=== PATIENT | male | born 1960 | race Caucasian/White ===

== ENCOUNTER 2024-04-18 10:06 | Observation (INO) | payer MEDICARE ==
[2024-04-18 11:09] LABS: BASOPHILS ABSOLUTE AUTO 0.03 K/uL (0.00-0.20); BASOPHILS PERCENT AUTO 0.4 % (0.0-1.0); EOSINOPHILS ABSOLUTE AUTO 0.16 K/uL (0.00-0.45); HEMOGLOBIN 14.6 g/dL (14.0-18.0); IMMATURE GRAN ABSOLUTE AUTO 0.03 K/uL (0.00-0.05); IMMATURE GRAN PERCENT AUTO 0.4 % (0.0-0.4); LYMPHOCYTES PERCENT AUTO 21.3 % (24.0-44.0); MEAN CORPUSCULAR HEMOGLOBIN 30.9 pg (28.0-32.0); MEAN CORPUSCULAR VOLUME 90.9 fL (83.0-99.0); MEAN PLATELET VOLUME 9.4 fL (9.4-12.4); MONOCYTES ABSOLUTE AUTO 0.46 K/uL (0.00-0.80); MONOCYTES PERCENT AUTO 5.8 % (0.0-8.0); NEUTROPHILS ABSOLUTE AUTO 5.59 K/uL (1.80-7.70); NEUTROPHILS PERCENT AUTO 70.1 % (41.0-71.0); PLATELET COUNT,PLT 255 K/uL (150-400); RED BLOOD CELL COUNT 4.73 M/uL (4.52-5.90); WHITE BLOOD CELL COUNT,WBC 7.97 K/uL (3.9-11.3)
[2024-04-18 11:27] LABS: INR 1.03 (0.86-1.11); PTT,PARTIAL THROMBOPLSTIN TIME 28.6 SEC (23.9-30.7)
[2024-04-18 11:53] LABS: A/G RATIO 1.5 (0.9-1.6); ALBUMIN 4.1 g/dL (3.4-5.0); BILIRUBIN TOTAL 1.1 mg/dL (0.2-1.0); CARBON DIOXIDE,CO2 26.2 mmol/L (21.0-32.0); EST CRCL DRUG DOSING (CG) 78.07 mL/min; POTASSIUM,K 4.4 mmol/L (3.5-5.1); PROTEIN TOTAL,TP 6.9 g/dL (6.4-8.2)
[2024-04-18 12:07] LABS: MAGNESIUM 2.1 mg/dL (1.8-2.4); TSH ULTRASENSITIVE 3.07 uIU/mL (0.36-3.74)
[2024-04-18] MEDS: Iopamidol 755 MG/ML 500 ML Multipack Bottle IVPUSH STA (12:28)
[2024-04-18 13:32] LABS: APPEARANCE,URINE CLEAR; BILIRUBIN,URINE NEGATIVE (NEGATIVE); COLOR,URINE YELLOW; GLUCOSE,URINE NEGATIVE (NEGATIVE); KETONES,URINE NEGATIVE (NEGATIVE); LEUKOCYTE ESTERASE,URINE NEGATIVE (NEGATIVE); NITRITE,URINE NEGATIVE (NEGATIVE); OCCULT BLOOD,URINE TRACE-INTACT (NEGATIVE); PROTEIN,URINE NEGATIVE (NEGATIVE); UROBILINOGEN,URINE 0.2 EU/dL (<2.0)
[2024-04-18] MEDS ORDERED: Acetaminophen 325 MG Tab PO PRN (14:22)
[2024-04-18] MEDS ORDERED: Polyethylene Glycol 3350 Powder 17 GM Packet PO PRN (14:22)
[2024-04-18 14:26] LABS: BACTERIA,URINE NOT SEEN (NEGATIVE); EPITHELIAL CELLS,URINE RARE (NONE-FEW); RBC,URINE 0-2 (0-2/HPF); SPERM,URINE OCCASIONAL (NEGATIVE); WBC,URINE 0-1 (0-5/HPF)
[2024-04-18 14:48] LABS: HEMOGLOBIN A1C 5.8 %
[2024-04-19 05:39] LABS: BASOPHILS ABSOLUTE AUTO 0.03 K/uL (0.00-0.20); BASOPHILS PERCENT AUTO 0.4 % (0.0-1.0); EOSINOPHILS ABSOLUTE AUTO 0.27 K/uL (0.00-0.45); EOSINOPHILS PERCENT AUTO 3.6 % (0.0-6.0); HEMATOCRIT 42.7 % (42.0-52.0); HEMOGLOBIN 14.2 g/dL (14.0-18.0); IMMATURE GRAN ABSOLUTE AUTO 0.02 K/uL (0.00-0.05); IMMATURE GRAN PERCENT AUTO 0.3 % (0.0-0.4); LYMPHOCYTES ABSOLUTE AUTO 2.21 K/uL (1.00-4.80); LYMPHOCYTES PERCENT AUTO 29.5 % (24.0-44.0); MEAN CORPUSCULAR HEMOGLOBIN 30.3 pg (28.0-32.0); MEAN CORPUSCULAR HGB CONC 33.3 g/dL (32.0-36.0); MEAN PLATELET VOLUME 9.6 fL (9.4-12.4); MONOCYTES ABSOLUTE AUTO 0.46 K/uL (0.00-0.80); MONOCYTES PERCENT AUTO 6.1 % (0.0-8.0); NEUTROPHILS ABSOLUTE AUTO 4.49 K/uL (1.80-7.70); NEUTROPHILS PERCENT AUTO 60.1 % (41.0-71.0); PLATELET COUNT,PLT 254 K/uL (150-400); RED BLOOD CELL COUNT 4.69 M/uL (4.52-5.90); WHITE BLOOD CELL COUNT,WBC 7.48 K/uL (3.9-11.3)
[2024-04-19 06:12] LABS: A/G RATIO 1.3 (0.9-1.6); ALBUMIN 3.6 g/dL (3.4-5.0); BILIRUBIN TOTAL 1.1 mg/dL (0.2-1.0); CALCIUM 8.9 mg/dL (8.5-10.1); CARBON DIOXIDE,CO2 24.7 mmol/L (21.0-32.0); EST CRCL DRUG DOSING (CG) 78.07 mL/min; POTASSIUM,K 4.1 mmol/L (3.5-5.1); PROTEIN TOTAL,TP 6.4 g/dL (6.4-8.2)
[2024-04-19] MEDS ORDERED: Lidocaine 1% 10 ML MDV INJECT ONE (10:38)
== END 2024-04-19 18:27 | disposition home or self-care (01) ==
LOC: MW.ED 10:06 → MW.MS 14:42
PROVIDERS: ADMIT Internal Medicine; ATTEND Internal Medicine
DX: G45.9 Transient cerebral ischemic attack, unspecified (principal)
CPT/HCPCS: 36415; 70450; 70496; 70498; 70551; 71046; 72125; 80053; 80061; 81001; 82607; 83036; 83735; 84443; 84484; 85025; 85610; 85730; 93005; 93246; 93306; 97163; 99285; Q9967; 93010; G0378

== ENCOUNTER 2025-05-31 06:11 | Day surgery (SDC) | payer MEDICARE ==
[2025-05-31] MEDS: Lactated Ringers 1,000 ML IV SCH (06:57)
[2025-05-31] MEDS ORDERED: Propofol 200 MG/20 ML SDV ONE (07:37)
[2025-05-31] MEDS ORDERED: Midazolam 1 MG/ML 2 ML SDV ONE (07:37)
[2025-05-31] MEDS ORDERED: fentaNYL 100 MCG/2 ML SDV ONE (07:37)
[2025-05-31] MEDS ORDERED: ePHEDrine 50 MG/ML SDV ONE (08:07)
[2025-05-31] MEDS ORDERED: Ondansetron 4 MG/2 ML SDV ONE (08:09)
[2025-05-31] MEDS ORDERED: Dexamethasone 4 MG/ML 5 ML MDV ONE (08:09)
[2025-05-31] MEDS ORDERED: Ondansetron 4 MG/2 ML SDV IVPUSH PRN (08:19)
[2025-05-31] MEDS ORDERED: Albuterol 0.083% 2.5 MG/3 ML Neb Soln NEB PRN (08:19)
[2025-05-31] MEDS ORDERED: Naloxone 0.4 MG/ML SDV IVPUSH PRN (08:19)
[2025-05-31] MEDS ORDERED: fentaNYL 50 MCG/ML SDV IVPUSH PRN (08:19)
[2025-05-31] MEDS ORDERED: Acetaminophen/HYDROcodone 325-5 MG Tab PO PRN (08:43)
[2025-05-31] MEDS ORDERED: Lactated Ringers 1,000 ML IV SCH (08:45)
== END 2025-05-31 09:55 | disposition home or self-care (01) ==
LOC: MW.SDS 06:11
PROVIDERS: ATTEND Surgery
DX: L72.0 Epidermal cyst (principal); I10 Essential (primary) hypertension; Z79.899 Other long term (current) drug therapy
CPT/HCPCS: 11406; 88304; J0665; J1100; J2003; J2250; J2371; J2704; J3010; J7120; 00300; J2405; J3490